=== PATIENT | male | born 1995 | race Caucasian/White ===

== ENCOUNTER 2024-12-18 11:15 | Emergency (ER) | payer OTHER, SELFPAY ==
--- NOTE | ~2024-12-18 | CT_ITS ---
EXAMINATION: CT ABDOMEN AND PELVIS WITHOUT CONTRAST CLINICAL INFORMATION: Right flank pain. COMPARISON: None available. TECHNIQUE: Multidetector volumetric imaging was performed from the superior aspect of the liver through the pubic symphysis. Sagittal and coronal reformatted images were obtained on the technologist's workstation. This CT examination was performed using dose optimization techniques as appropriate, variously including the following: *Automated exposure control *Adjustment of mA and/or kV according to patient size (this includes techniques or standardized protocols for targeted exams where dose is matched to indication/reason for exam; i.e. extremities or head) *Use of iterative reconstruction technique DLP: 573 mGy centimeter. FINDINGS: Inadequate evaluation of the intra-abdominal organs and vascular structures due to lack of IV contrast. LUNG BASES: No acute airspace disease in the included lungs. LIVER, GALLBLADDER, AND BILIARY TREE: Liver measures 15 cm. No intrahepatic biliary ductal dilatation. No pericholecystic fluid collection or gallbladder wall thickening. Common bile duct measures 3 mm. PANCREAS: No peripancreatic fluid collections. No main pancreatic ductal dilatation. SPLEEN: 10 cm. ADRENAL GLANDS: No nodular lesions. KIDNEYS AND URETERS: Right kidney: Moderate hydronephrosis and mild to moderate dilatation of the proximal to mid right ureter. There is a 2 mm calculus at the distal right ureter/vesicoureteral junction. Left kidney: No hydronephrosis. No nephrolithiasis. Normal diameter left ureter. BLADDER: Fluid-filled. GASTROINTESTINAL TRACT: Appendix is normal. Abundant stool within the right hemicolon. No intestinal obstruction pattern. No ascites. No pneumatosis intestinalis. No pneumoperitoneum. ABDOMINAL WALL: Small tiny fat-containing umbilical hernia. LYMPH NODES: Nonspecific prominent lymph nodes, mesenteric and retroperitoneum. VASCULAR: No aneurysm, abdominal aorta. PELVIC VISCERA: The prostate gland is not enlarged. OSSEOUS STRUCTURES: No acute fracture or listhesis. No lytic or blastic lesions. Probable bony island, left femoral neck CT/CT abdomen pelvis wo IV con IMPRESSION: 2 mm obstructing calculus at the right vesicoureteral junction resulting in mild to moderate hydronephrosis. Fleischner guidelines were followed. Electronically signed by: Ramiro Wiley MD 12/18/2024 12:15 PM [facility] [place]
[2024-12-18 11:36] VITALS: BP 133/81; PULSE 80; RESP 19; TEMP 36.6; O2SAT 98; BMI 26.4
--- NOTE | 2024-12-18 11:38 | ED.ABDPAIN ---
HPI - Abdominal Pain General Chief Complaint: Urogenital-Male Stated Complaint: Kidney stone? Time Seen by Provider: 12/18/24 17:26 Source: patient Limitations: no limitations History of Present Illness ED Provider: Mary Carmen Hsu PA-C HPI narrative: 29-year-old male with a history of kidney stones who presents with right flank pain x2 days. Associated nausea, no dysuria fever or hematuria. Related Data Allergies Allergy/AdvReac Type Severity Reaction Status Date / Time No Known Allergies Allergy Verified 12/18/24 11:38 Review of Systems Review of Systems Yes all other systems are reviewed and are negative Constitutional: Denies fatigue and Denies fever(s) Cardiovascular: Denies chest pain and Denies dyspnea Respiratory: Denies dyspnea Gastrointestinal: Reports abdominal pain, Reports nausea and Denies vomiting Genitourinary: Denies hematuria, Denies dysuria and Reports flank pain Musculoskeletal: Reports back pain Endocrine: Denies fatigue PMF Past Medical History Attestation statement: The following information was validated with the patient. Social History Social History Advance Directives: No Advance Directives Information Provided: No Do you have a plan to hurt others: No Plan Physical Exam ED Vital Signs: Vital Signs - 24 hr 12/18/24 11:36 Temperature 98 F Pulse Rate 80 Respiratory Rate 19 Blood Pressure 133/81 Pulse Oximetry 98 Oxygen Delivery Method Room Air BMI result Body Mass Index 26.4 Const Other: Alert well-appearing Orientation/consciousness: patient oriented x3 Resp Effort & Inspection: normal respiratory effort Cardio Other: Normal peripheral perfusion Back/Spine/Pelvis Other: No CVA tenderness Skin Other: Warm dry no rash Neuro General: patient oriented x3, gait normal, no focal motor deficits and CN's II-XI intact bilaterally Psych Other: Calm cooperative Course Course Course Narrative: This is a rapid medical exam performed by Mary Carmen Hsu PA-C. The patient is a 29-year-old male with a history of kidney stones who presents with right flank pain x2 days. Associated nausea, no dysuria fever or hematuria. We will be screening basic labs, urinalysis and obtain a CT scan. The patient is stable and can return to the waiting room pending his full medical assessment. Medical Decision Making Medical Decision Making MDM Narrative: 29-year-old male with a history of kidney stones who presents with right flank pain x2 days. Associated nausea, no dysuria fever or hematuria. Problem known kidney stones History: Per patient I have considered the following differential diagnoses: UTI, pyelonephritis, renal colic Plan: Screening labs and urinalysis including a CT scan were obtained from triage. The patient was found to have a 2 mm stone at the UVJ, he has been assessed now, his symptoms have resolved, he likely passed the stone while waiting in the waiting room. We will send with the care instructions. He can follow up with primary care as needed. I have independently reviewed the following tests: Labs: No leukocytosis, no electrolyte abnormality, creatinine normal, urine not infected passing hematuria CT abdomen and pelvis: CT/CT abdomen pelvis wo IV con IMPRESSION: 2 mm obstructing calculus at the right vesicoureteral junction resulting in mild to moderate hydronephrosis. Fleischner guidelines were followed. Electronically signed by: Ramiro Wiley MD 12/18/2024 12:15 PM [facility] [place] [facility] Lab Data 12/18/24 12:17 12/18/24 12:17 Labs: Lab Results 12/18/24 Range/Units 12:17 WBC 5.9 (4.8-10.8) X10*3/uL RBC 4.55 L (4.60-5.80) X10*6/uL Hgb 14.5 (14.0-18.0) g/dl Hct 41.6 L (42.0-52.0) % MCV 91.4 (80.0-98.0) fL MCH 31.9 (27.0-33.0) pg MCHC 34.9 (31.0-36.0) g/dl RDW 11.9 (11.0-16.0) % Plt Count 225 (160-400) X10*3/uL MPV 8.9 L (9.4-12.4) fL Immature Gran % (Auto) 0.2 (0.0-0.4) % Neut % (Auto) 68.1 (45-73) % Lymph % (Auto) 24.1 (20-40) % [place] % (Auto) 6.8 (2-11) % Eos % (Auto) 0.3 (0-4) % Baso % (Auto) 0.5 (0-2) % Lymph # (Auto) 1.4 (1.2-4.9) X10*3/uL [place] # (Auto) 0.4 (0.1-1.2) X10*3/uL Eos # (Auto) 0.0 (0.0-0.4) X10*3/uL Baso # (Auto) 0.0 (0.0-0.2) X10*3/uL Abs Immat Gran (auto) 0.01 (0.00-0.03) X10*3/uL Absolute Neuts (auto) 4.0 (2.0-8.3) x10*3/uL Absolute Nucleated RBC 0.000 (0.0-0.012) X10*3/uL Nucleated RBC % (auto) 0.0 (0.0-0.2) /100WBC Sodium 139 (135-145) mmol/L Potassium 4.1 (3.3-5.1) mmol/L Chloride 104 (96-108) mmol/L Carbon Dioxide 24 (22-29) mmol/L Anion Gap 15 (12-20) BUN 15 (9-16) mg/dL Creatinine 0.85 (0.5-1.4) mg/dL Estim Creat Clear Calc 147.5 Estimated GFR > 60 Random Glucose 81 (60-115) mg/dL Calcium 9.7 (8.4-10.2) mg/dL Magnesium 2.0 (1.6-2.6) mg/dL Total Bilirubin 0.5 (0.0-1.0) mg/dL AST 28 (5-37) U/L ALT 38 (0-40) U/L Alkaline Phosphatase 64 (39-117) U/L Total Protein 7.4 (6.5-8.0) g/dL Albumin 4.4 (3.5-5.0) g/dL Urine Color Dark Yellow Urine Appearance Clear Urine pH 5.5 (5.0-9.0) Ur Specific [place] 1.020 (1.005-1.025) Urine Protein Negative (Neg-Trace) mg/dL Urine Glucose (UA) Negative (Negative) mg/dL Urine Ketones 40 (Negative) mg/dL Urine Blood Moderate (2+) H (Negative) Urine Nitrite Negative (Negative) Ur Leukocyte Esterase Trace H (Negative) Urine RBC 6-10 H (0-2) /HPF Urine WBC 0-5 (0-5) /HPF Ur Squamous Epith Cells 0-2 (0-2) /HPF Urine Bacteria None Seen (None Seen) Hyaline Casts 3-5 (0-2) /LPF Discharge Plan Discharge Clinical Impression: Calculus of distal right ureter Patient Disposition: Home, Self-Care Instructions: Ureteral Stones (ED) Additional Instructions: You were found to be passing a 2 mm kidney stone on the right that is at the juncture where your ureter meets the bladder. Given your asymptomatic, you likely already passed the stone. Return precautions for onset of severe right flank pain/abdominal pain, fever, inability to urinate or intractable vomiting. Otherwise follow up with your primary care provider. For residual discomfort you can use [id number] ibuprofen 600 mg taken every 6 hours with food. Print Language: Estonian
[2024-12-18 12:24] LABS: MANUAL DIFF FLAG NO
[2024-12-18 12:28] LABS: Appearance Urine Clear; Basophils Percent Auto 0.5 % (0-2); Color Urine Dark Yellow; Eosinophils Percent Auto 0.3 % (0-4); Glucose Urine UA Negative (Negative); Hematocrit 41.6 % (42.0-52.0); Hemoglobin 14.5 g/dl (14.0-18.0); Imm Gran Abs Auto 0.01 X10*3/uL (0.00-0.03); Imm Gran Pct Auto 0.2 % (0.0-0.4); Leukocyte Esterase Urine Trace (Negative); Lymphocytes Absolute Auto 1.4 X10*3/uL (1.2-4.9); Lymphocytes Percent Auto 24.1 % (20-40); Mean Corpuscular HGB Conc 34.9 g/dl (31.0-36.0); Mean Corpuscular Hemoglobin 31.9 pg (27.0-33.0); Mean Corpuscular Volume 91.4 fL (80.0-98.0); Mean Platelet Volume 8.9 fL (9.4-12.4); Monocytes Absolute Auto 0.4 X10*3/uL (0.1-1.2); Monocytes Percent Auto 6.8 % (2-11); Neutrophils Percent Auto 68.1 % (45-73); Nitrite Urine Negative (Negative); PH 5.5 (5.0-9.0); Platelet Count 225 X10*3/uL (160-400); Red Blood Count 4.55 X10*6/uL (4.60-5.80); Red Cell Distribution Width 11.9 % (11.0-16.0); UMIC TRIGGER UACC YES; Urine Blood Moderate (2+) (Negative); Urine Ketones 40 mg/dL (Negative); Urine Protein Negative (Neg-Trace); White Blood Count 5.9 X10*3/uL (4.8-10.8)
[2024-12-18 12:33] LABS: Bacteria Urine None Seen (None Seen); Squamous Epithelial Cell Urine 0-2 /HPF (0-2); WBC Urine 0-5 /HPF (0-5)
[2024-12-18 12:41] LABS: Alanine Aminotransferase 38 U/L (0-40); Albumin Level 4.4 g/dL (3.5-5.0); Alkaline Phosphatase 64 U/L (39-117); Anion Gap 15 (12-20); Aspartate Amino Transferase 28 U/L (5-37); Bilirubin Total 0.5 mg/dL (0.0-1.0); Blood Urea Nitrogen 15 mg/dL (9-16); Calcium 9.7 mg/dL (8.4-10.2); Carbon Dioxide 24 mmol/L (22-29); Chloride 104 mmol/L (96-108); Creatinine Clr Calc Pharmacy 147.5; Estimated Glomerular Filt Rate > 60; Glucose Random 81 mg/dL (60-115); Potassium 4.1 mmol/L (3.3-5.1); Sodium 139 mmol/L (135-145); Total Protein 7.4 g/dL (6.5-8.0)
[2024-12-18 18:40] VITALS: BP 133/81; PULSE 80; RESP 19; TEMP 36.6; O2SAT 98
== END 2024-12-18 18:41 | disposition home or self-care (01) ==
PROVIDERS: Physician Assistant Medical; Emergency Provider Emergency Medicine Emergency Medical Services
DX: N20.1 Calculus of ureter (principal); R10.2 Pelvic and perineal pain; R11.0 Nausea; Z79.899 Other long term (current) drug therapy
CPT/HCPCS: 36415; 74176; 80053; 81001; 83735; 85025; 99282; 99284

== ENCOUNTER → 2024-12-18 11:39 | Outpatient (BNV) | payer SELFPAY | PROVIDERS: Visit Provider Radiology Diagnostic Radiology | DX: R10.11 Right upper quadrant pain (principal) | CPT/HCPCS: 74176 ==